=== PATIENT | male | born 1985 | race Caucasian/White ===

== ENCOUNTER 2018-01-12 18:51 | Emergency (ER) | payer SELFPAY ==
[~2018-01-12] VITALS: Ht 177.8 cm; Wt 87.0 kg
[2018-01-12 18:53] VITALS: BP 155/91
== END 2018-01-12 19:45 | disposition left against medical advice (07) ==
LOC: ER 18:51
DX: S13.9XXA Sprain of joints and ligaments of unspecified parts of neck, initial encounter (principal); M19.90 Unspecified osteoarthritis, unspecified site; F32.9 Major depressive disorder, single episode, unspecified; M54.30 Sciatica, unspecified side; V43.52XA Car driver injured in collision with other type car in traffic accident, initial encounter; Y93.89 Activity, other specified; Y92.488 Other paved roadways as the place of occurrence of the external cause